=== PATIENT | male | born 1995 | race Caucasian/White ===

== ENCOUNTER 2020-08-10 18:19 | Emergency (ER) | payer BC ==
[~2020-08-10] VITALS: Ht 182.9 cm; Wt 87.3 kg
[2020-08-10 18:20] VITALS: BP 119/83; TEMP 98.2
[2020-08-10 22:43] VITALS: PULSE 95
[2020-08-11 02:25] LABS: ALBUMIN 5.1 gm/dL (3.5-5.0); BILIRUBIN,TOTAL 0.9 mg/dL (0.0-1.0); CALCIUM 9.7 mg/dL (8.4-10.2); CREATININE, serum 1.27 (0.66-1.25); HEMOGLOBIN 16.6 g/dl (13.5-18.0); MEAN CORPUSCULAR HEMOGLOBIN 30 pg (27.0-31.0); POTASSIUM 4.1 mmol/L (3.4-5.0); RED BLOOD COUNT 5.45 M/mm3 (4.20-5.60); TOTAL PROTEIN 8.2 gm/dL (6.4-8.2)
[2020-08-11 02:26] LABS: HEMATOCRIT 46.3 % (42.0-52.0); MEAN CELL VOLUME 85 fl (80.0-100.0); MEAN CORPUSCULAR HGB CONC 36 g/dl (33.0-37.0); PLATELET COUNT 225 K/mm3 (130-400)
[2020-08-11 02:27] LABS: BASO % 0.4 % (0.0-2.0); EOS % 0.2 % (0-4.0); GRAN % 78.8 % (42.2-75.2); LYMPH # 1.1 (1.2-3.4); LYMPH % 12.4 % (20.0-51.0); MEAN PLATELET VOLUME 9.9 fl (7.4-10.4); MONO # 0.7 (0.1-0.6); MONO % 7.8 % (1.7-9.3)
== END 2020-08-10 22:43 | disposition home or self-care (01) ==
LOC: COL.ER 18:19
PROVIDERS: Family Medicine
DX: R10.11 Right upper quadrant pain (principal); R50.9 Fever, unspecified; R11.10 Vomiting, unspecified
CPT/HCPCS: C9113; J2270; J2405; J7030